=== PATIENT | female | born 1945 ===

== ENCOUNTER 2019-10-24 12:14 | Outpatient (CLI) | payer OTHER | END 2019-10-24 12:20 | disposition home or self-care (01) | LOC: SONOGRAMA 12:14 | PROVIDERS: ATTEND Surgery | DX: N60.11 Diffuse cystic mastopathy of right breast (principal); N60.12 Diffuse cystic mastopathy of left breast; R92.0 Mammographic microcalcification found on diagnostic imaging of breast ==